=== PATIENT | female | born 1970 | race Caucasian/White ===

== ENCOUNTER 2016-12-21 05:12 | Inpatient (IN) | payer OTHER ==
[2016-12-21] VITALS (12 sets, daily range): BP systolic 106–149; BP diastolic 61–90
[~2016-12-21] VITALS: Ht 162.6 cm; Wt 101.6 kg
[2016-12-21] MEDS ORDERED: ZYRTEC10 MG ORAL (06:21)
[2016-12-21] MEDS ORDERED: VITAMIN D400 INTLU ORAL (06:21)
[2016-12-21] MEDS ORDERED: LEVOFLOXACIN500 MG ORAL (06:21)
[2016-12-21] MEDS ORDERED: CYTOMEL5 MCG ORAL (06:21)
[2016-12-21] MEDS ORDERED: SYNTHROID125 MCG ORAL (06:21)
[2016-12-21] MEDS ORDERED: OMEPRAZOLE40 M1 ORAL (06:21)
[2016-12-21] MEDS ORDERED: ZANTAC150 MG ORAL (06:21)
[2016-12-21] MEDS ORDERED: MAGNESIUM500 MG PO (06:21)
[2016-12-21] MEDS ORDERED: Surgicel 4in x 8in TOPIC ONE (06:40)
[2016-12-21] MEDS ORDERED: Vancomycin 1gm inj IVPB ONE ×2 (06:40→09:44)
[2016-12-21] MEDS ORDERED: Thrombin 5000 units TOPIC ONE ×2 (06:40→09:44)
[2016-12-21] MEDS ORDERED: Bacitracin 50000 Units Vial ONE (06:41)
[2016-12-21] MEDS ORDERED: Labetalol 5mg/ml 20ml vial IV ONE (07:00)
[2016-12-21] MEDS ORDERED: fentaNYL 100 mcg/2 mL IV ONE (07:00)
[2016-12-21] MEDS ORDERED: Esmolol 100mg/10ml Inj ONE (07:00)
[2016-12-21] MEDS ORDERED: Metoprolol 5mg/5ml Inj ONE (07:00)
[2016-12-21] MEDS ORDERED: ceFAZolin 2gm/50ml Premix 50 ML IVPB ONE (07:00)
[2016-12-21] MEDS ORDERED: Sterile Water Irrig 1000ml IRRIG ONE (07:00)
[2016-12-21] MEDS ORDERED: Propofol 1,000mg/ 100ml btl IV ONE (07:00)
[2016-12-21] MEDS ORDERED: Neostigmine 1mg/ml 10ml Inj ONE (07:00)
[2016-12-21] MEDS ORDERED: NS Irrig 1000ml ONE (07:00)
[2016-12-21] MEDS ORDERED: Sodium Chloride 10ml vial INJ ONE (07:00)
[2016-12-21] MEDS ORDERED: Lidocaine 1% MPF 10mg/ml 5ml ONE (07:00)
[2016-12-21] MEDS ORDERED: Glycopyrrolate 0.2mg/ml 1ml Vial ONE (07:00)
[2016-12-21] MEDS ORDERED: Midazolam 2mg/2ml Inj ONE (07:00)
[2016-12-21] MEDS ORDERED: Zemuron 50mg/5ml Inj IV ONE (07:00)
[2016-12-21] MEDS ORDERED: LR 1000ml ONE (07:00)
--- NOTE | 2016-12-21 07:01 | Pre-Procedure Note/Attestation ---
Pre-Procedure Note/Attestation Complete Prior to Procedure Planned Procedure: not applicable Procedure Narrative: Anterior cervical discectomy and artificial disc replacement of C5-6 using and anterior cervical discectomy and fusion of C45 , versus anterior cervical discectomy and artificial disc replacement of C45 and anterior cervical discectomy and fusion of C56 Indications for Procedure Pre-Operative Diagnosis: Herniation nucleus pulposus of C45 and 56 Attestation I attest that I discussed the nature of the procedure; its benefits; risks and complications; and alternatives (and the risks and benefits of such alternatives ), prior to the procedure, with the patient (or the patient's legal customer retention representative). I attest that, if there was a reasonable possibility of needing a blood transfusion, the patient (or the patient's legal customer retention representative) was given the [place] Department [facility] standardized written summary, pursuant to the Carlos [place] Blood Safety Act ([place] Health and Safety Code # 1645, as amended). I attest that I re-evaluated the patient just prior to the surgery and that there has been no change in the patient's H&P, except as documented below: CASSIE LEZAMA Dec 21, 2016 07:01
--- NOTE | 2016-12-21 07:01 | Pre-Procedure Note/Attestation ---
Pre-Procedure Note/Attestation Complete Prior to Procedure Planned Procedure: not applicable Procedure Narrative: Anterior cervical discectomy and artificial disc replacement of C5-6 using and anterior cervical discectomy and fusion of C45 , versus anterior cervical discectomy and artificial disc replacement of C45 and anterior cervical discectomy and fusion of C56 Indications for Procedure Pre-Operative Diagnosis: Herniation nucleus pulposus of C45 and 56 Attestation I attest that I discussed the nature of the procedure; its benefits; risks and complications; and alternatives (and the risks and benefits of such alternatives ), prior to the procedure, with the patient (or the patient's legal patient admitting representative). I attest that, if there was a reasonable possibility of needing a blood transfusion, the patient (or the patient's legal patient admitting representative) was given the [place] Department [facility] Services standardized written summary, pursuant to the [place] Blood Safety Act ([place] Health and Safety Code # 1645, as amended). I attest that I re-evaluated the patient just prior to the surgery and that there has been no change in the patient's H&P, except as documented below: CASSIE LEZAMA Dec 21, 2016 07:01
--- NOTE | 2016-12-21 07:01 | Pre-Procedure Note/Attestation ---
Pre-Procedure Note/Attestation Complete Prior to Procedure Planned Procedure: not applicable Procedure Narrative: Anterior cervical discectomy and artificial disc replacement of C5-6 using and anterior cervical discectomy and fusion of C45 , versus anterior cervical discectomy and artificial disc replacement of C45 and anterior cervical discectomy and fusion of C56 Indications for Procedure Pre-Operative Diagnosis: Herniation nucleus pulposus of C45 and 56 Attestation I attest that I discussed the nature of the procedure; its benefits; risks and complications; and alternatives (and the risks and benefits of such alternatives ), prior to the procedure, with the patient (or the patient's legal financial services sales representative). I attest that, if there was a reasonable possibility of needing a blood transfusion, the patient (or the patient's legal financial services sales representative) was given the [place] Department [facility] standardized written summary, pursuant to the Carlos [place] Blood Safety Act ([place] Health and Safety Code # 1645, as amended). I attest that I re-evaluated the patient just prior to the surgery and that there has been no change in the patient's H&P, except as documented below: CASSIE LEZAMA Dec 21, 2016 07:01
--- NOTE | 2016-12-21 07:02 | Brief Operative Note ---
Immediate Post Operative Note Operative Note Chief Complaint: neck pain and radiculopathy Pre-op Diagnosis: Herniation nucleus pulposus of C45 and 56 Procedure: Anterior cervical discectomy and artificial disc replacement of C5-6 using and anterior cervical discectomy and fusion of C45 , Post-op Diagnosis: same as pre-op Findings: consistent w/pre-op dx studies Surgeon: Merlin Anesthesiologist: Lorraine Anesthesia: general Specimen: none Complications: none Condition: stable Estimated Blood Loss: minimal Drains: none Implant(s) used?: Yes - Prodisc C5, nuvasive interlock c sz 6 screws 3x13 CASSIE LEZAMA Dec 21, 2016 07:02
[2016-12-21] MEDS ORDERED: LR 1000ml 1,000 ML IVLG SCH (08:34)
[2016-12-21] MEDS ORDERED: LORazepam Inj 2mg/ml 1ml IV PRN (08:45)
[2016-12-21] MEDS ORDERED: Hydromorphone 0.5mg/0.5ml inj IVP PRN (08:45)
[2016-12-21] MEDS ORDERED: DiphenhydrAMINE 50mg/ml Inj IVP PRN (08:45)
[2016-12-21] MEDS ORDERED: Meperidine 50mg/ml Inj(FOR RIGORS ONLY) IM ONE (08:45)
[2016-12-21] MEDS ORDERED: LR 1000ml 1,000 ML IV SCH (08:45)
--- NOTE | 2016-12-21 09:00 | Anethesia Preoperative Eval ---
Anesthesia Pre-op PMH/ROS General Date of Evaluation: Dec 21, 2016 Time of Evaluation: 06:50 Anesthesiologist: Francisco ASA Score: ASA 3 Mallampati Score Class I : Soft palate, uvula, fauces, pillars visible Class II: Soft palate, uvula, fauces visible Class III: Soft palate, base of uvula visible Class IV: Only hard plate visible Mallampati Classification: Class II Surgeon: Merlin Diagnosis: Cervical herniated disc Surgical Procedure: ACDFm C4-5, Disc replacement C5-6 Family History: no anesthesia problems Allergies: Coded Allergies: CODEINE (Verified Allergy, Severe, dizziness, 12/21/16) PENICILLINS (Verified Allergy, Unknown, 12/21/16) Medications: see eMAR Past Medical History Cardiovascular: Denies: HTN, CAD, [place], valve dz, arrhythmia, other Pulmonary: Denies: asthma, COPD, HIEN, other Gastrointestinal/Genitourinary: Reports: GERD, Denies: CRI, ESRD, other Endocrine: Reports: hypothyroidism, Denies: DM, steroids, other HEENT: Denies: cataract (L), cataract (R), glaucoma, [place] (L), STILL[place] (R), other Hematology/Immune: Denies: anemia, DVT, bleeding disorder, other Musculoskeletal/Integumentary: Denies: OA, RA, DJD, DDD, edema, other Other: obesity PMH Narrative: Hypothyroid, GERD, obesity PSxH Narrative: B/l CTR, upper extremity nerve surgery Anesthesia Pre-op Phys. Exam Physician Exam Last Vital Signs Date Time Temp Pulse Resp B/P (MAP) Pulse Ox O2 Delivery O2 Flow Rate FiO2 12/21/16 06:12 97.9 67 18 132/78 95 Room Air Constitutional: NAD Neurologic: CN 2-12 intact Cardiovascular: RRR, no M/R/G Respiratory: CTA Gastrointestinal: S/NT/ND Airway Exam Mallampati Score: Class II MO: full ROM: full Teeth: intact Anesthesia Pre-op A/P Labs WNL Urine Test Test 12/21/16 05:25 Urine HCG, Qualitative Negative Studies Pre-op Studies: EKG - NSR, CXR - NAD Risk Assessment & Plan Assessment: ASA class 3 patient for cervical fusion and disc replacement Plan: GETA, SedLine, [place] scope intubation Status Change Before Surgery: No Pre-Antibiotics Drug: Ancef Given Within 1 Hr of Incision: Yes Time Given: 07:30 FREDO HANSON M.D. Dec 21, 2016 09:00
--- NOTE | 2016-12-21 09:00 | Anethesia Preoperative Eval ---
Anesthesia Pre-op PMH/ROS General Date of Evaluation: Dec 21, 2016 Time of Evaluation: 06:50 Anesthesiologist: Francisco ASA Score: ASA 3 Mallampati Score Class I : Soft palate, uvula, fauces, pillars visible Class II: Soft palate, uvula, fauces visible Class III: Soft palate, base of uvula visible Class IV: Only hard plate visible Mallampati Classification: Class II Surgeon: Merlin Diagnosis: Cervical herniated disc Surgical Procedure: ACDFm C4-5, Disc replacement C5-6 Family History: no anesthesia problems Allergies: Coded Allergies: CODEINE (Verified Allergy, Severe, dizziness, 12/21/16) PENICILLINS (Verified Allergy, Unknown, 12/21/16) Medications: see eMAR Past Medical History Cardiovascular: Denies: HTN, CAD, [place], valve dz, arrhythmia, other Pulmonary: Denies: asthma, COPD, HIEN, other Gastrointestinal/Genitourinary: Reports: GERD, Denies: CRI, ESRD, other Endocrine: Reports: hypothyroidism, Denies: DM, steroids, other HEENT: Denies: cataract (L), cataract (R), glaucoma, [place] (L), [place] (R), other Hematology/Immune: Denies: anemia, DVT, bleeding disorder, other Musculoskeletal/Integumentary: Denies: OA, RA, DJD, DDD, edema, other Other: obesity PMH Narrative: Hypothyroid, GERD, obesity PSxH Narrative: B/l CTR, upper extremity nerve surgery Anesthesia Pre-op Phys. Exam Physician Exam Last Vital Signs Date Time Temp Pulse Resp B/P (MAP) Pulse Ox O2 Delivery O2 Flow Rate FiO2 12/21/16 06:12 97.9 67 18 132/78 95 Room Air Constitutional: NAD Neurologic: CN 2-12 intact Cardiovascular: RRR, no M/R/G Respiratory: CTA Gastrointestinal: S/NT/ND Airway Exam Mallampati Score: Class II MO: full ROM: full Teeth: intact Anesthesia Pre-op A/P Labs WNL Urine Test Test 12/21/16 05:25 Urine HCG, Qualitative Negative Studies Pre-op Studies: EKG - NSR, CXR - NAD Risk Assessment & Plan Assessment: ASA class 3 patient for cervical fusion and disc replacement Plan: GETA, SedLine, [place] scope intubation Status Change Before Surgery: No Pre-Antibiotics Drug: Ancef Given Within 1 Hr of Incision: Yes Time Given: 07:30 FREDO HANSON M.D. Dec 21, 2016 09:00
--- NOTE | 2016-12-21 09:00 | Anethesia Preoperative Eval ---
Anesthesia Pre-op PMH/ROS General Date of Evaluation: Dec 21, 2016 Time of Evaluation: 06:50 Anesthesiologist: Francisco ASA Score: ASA 3 Mallampati Score Class I : Soft palate, uvula, fauces, pillars visible Class II: Soft palate, uvula, fauces visible Class III: Soft palate, base of uvula visible Class IV: Only hard plate visible Mallampati Classification: Class II Surgeon: Merlin Diagnosis: Cervical herniated disc Surgical Procedure: ACDFm C4-5, Disc replacement C5-6 Family History: no anesthesia problems Allergies: Coded Allergies: CODEINE (Verified Allergy, Severe, dizziness, 12/21/16) PENICILLINS (Verified Allergy, Unknown, 12/21/16) Medications: see eMAR Past Medical History Cardiovascular: Denies: HTN, CAD, [place], valve dz, arrhythmia, other Pulmonary: Denies: asthma, COPD, HIEN, other Gastrointestinal/Genitourinary: Reports: GERD, Denies: CRI, ESRD, other Endocrine: Reports: hypothyroidism, Denies: DM, steroids, other HEENT: Denies: cataract (L), cataract (R), glaucoma, OSAGE (L), OSAGE (R), other Hematology/Immune: Denies: anemia, DVT, bleeding disorder, other Musculoskeletal/Integumentary: Denies: OA, RA, DJD, DDD, edema, other Other: obesity PMH Narrative: Hypothyroid, GERD, obesity PSxH Narrative: B/l CTR, upper extremity nerve surgery Anesthesia Pre-op Phys. Exam Physician Exam Last Vital Signs Date Time Temp Pulse Resp B/P (MAP) Pulse Ox O2 Delivery O2 Flow Rate FiO2 12/21/16 06:12 97.9 67 18 132/78 95 Room Air Constitutional: NAD Neurologic: CN 2-12 intact Cardiovascular: RRR, no M/R/G Respiratory: CTA Gastrointestinal: S/NT/ND Airway Exam Mallampati Score: Class II MO: full ROM: full Teeth: intact Anesthesia Pre-op A/P Labs WNL Urine Test Test 12/21/16 05:25 Urine HCG, Qualitative Negative Studies Pre-op Studies: EKG - NSR, CXR - NAD Risk Assessment & Plan Assessment: ASA class 3 patient for cervical fusion and disc replacement Plan: GETA, SedLine, [place] scope intubation Status Change Before Surgery: No Pre-Antibiotics Drug: Ancef Given Within 1 Hr of Incision: Yes Time Given: 07:30 FREDO HANSON M.D. Dec 21, 2016 09:00
--- NOTE | 2016-12-21 09:05 | Immediate Post-Op Evaluation ---
Immediate Post-Op Evalulation Immediate Post-Op Evalulation Procedure: ACDF C4-5, disc replacement C5-6 Date of Evaluation: Dec 21, 2016 Time of Evaluation: 10:35 IV Fluids: 1750 Estimated Blood Loss: 50 Urinary Output: 150 Blood Pressure Systolic: 109 Blood Pressure Diastolic: 61 Pulse Rate: 105 Respiratory Rate: 12 O2 Sat by Pulse Oximetry: 99 Temperature (Fahrenheit): 97.0 Pain Score (1-10): 0 Nausea: No Vomiting: No Complications No complication Patient Status: reacts, patent, extubated, none Hydration Status: adequate Drug: Ancef Given Within 1 Hr of Incision: Yes Time Given: 07:30 FREDO HANSON M.D. Dec 21, 2016 09:05
[2016-12-21] MEDS ORDERED: Meperidine 50mg/ml Inj(FOR RIGORS ONLY) IVP PRN (11:30)
[2016-12-21] MEDS: HYDROmorphone 1mg/ml Carpuject IVP PRN ×2 (12:39→20:55)
[2016-12-21] MEDS ORDERED: Naloxone 0.4mg/ml Inj IVP PRN (13:00)
[2016-12-21] MEDS ORDERED: Metoclopramide 10mg/2ml Inj IVP PRN (13:00)
[2016-12-21] MEDS ORDERED: Norco 5mg/325mg tab ORAL PRN (13:00)
[2016-12-21] MEDS ORDERED: HYDROmorphone 1mg/ml Carpuject SUBQ PRN (13:00)
[2016-12-21] MEDS ORDERED: Norco 7.5mg/325mg tab ORAL PRN (13:00)
--- NOTE | 2016-12-21 13:23 | 48 Hour Post Anesthesia Eval ---
Post Anesthesia Evaluation Procedure: ACDF C4-5, disc replacement C5-6 Date of Evaluation: Dec 21, 2016 Time of Evaluation: 11:45 Blood Pressure Systolic: 138 0: 79 Pulse Rate: 96 Respiratory Rate: 16 Temperature (Fahrenheit): 97.0 O2 Sat by Pulse Oximetry: 99 Airway: patent Nausea: No Vomiting: No Pain Intensity: 3 Hydration Status: adequate Cardiopulmonary Status: [place] Mental Status/LOC: patient returned to baseline Follow-up Care/Observations: As per surgery Post-Anesthesia Complications: No anesthetic complication Follow-up care needed: N/A FREDO HANSON M.D. Dec 21, 2016 13:23
[2016-12-21] MEDS: Dexamethasone 4mg/ml vial IVP SCH ×3 (13:59→23:29)
[2016-12-21] MEDS: NS w/KCl 20mEq 1,000 ML IV SCH ×2 (13:59→23:49)
[2016-12-21] MEDS ORDERED: Chloraseptic Spray 20mL Bottle ORAL PRN (14:00)
--- NOTE | 2016-12-21 15:20 | General Progress Note ---
Subjective Date patient seen: Dec 21, 2016 Time patient seen: 15:20 Allergies: Coded Allergies: CODEINE (Verified Allergy, Severe, dizziness, 12/21/16) PENICILLINS (Verified Allergy, Unknown, 12/21/16) Objective Last 24 Hour Vital Signs Date Time Temp Pulse Resp B/P (MAP) Pulse Ox O2 Delivery O2 Flow Rate FiO2 12/21/16 13:23 96 16 99 12/21/16 13:09 97.0 12/21/16 12:16 97.0 96 16 138/79 99 Nasal Cannula 3.0 12/21/16 11:35 98.9 101 17 133/84 98 Nasal Cannula 3.0 12/21/16 11:20 102 26 133/86 97 Nasal Cannula 3.0 12/21/16 11:05 106 16 149/89 97 Nasal Cannula 3.0 12/21/16 10:50 104 12 142/90 98 Simple Mask 6.0 12/21/16 10:40 107 11 113/64 98 Simple Mask 6.0 12/21/16 10:33 105 11 111/64 98 Simple Mask 6.0 12/21/16 10:31 105 12 99 12/21/16 10:28 104 11 106/64 98 Simple Mask 6.0 12/21/16 10:23 97.0 105 15 109/61 99 Simple Mask 6.0 12/21/16 06:12 97.9 67 18 132/78 95 Room Air Intake and Output 12/21/16 12/22/16 19:00 07:00 Intake Total 2250 ml Output Total 200 ml Balance 2050 ml Intake IV Total 2250 ml Output Urine Total 150 ml Estimated Blood Loss 50 ml Laboratory Tests 12/21/16 05:25: Urine HCG, Qualitative Negative Height (Feet): 5 Height (Inches): 4.00 Weight (Pounds): 224 Alba Hidalgo M.D. Dec 21, 2016 15:20
--- NOTE | 2016-12-21 15:47 | Consultation ---
History of Present Illness General Date patient seen: Dec 21, 2016 Time patient seen: 15:00 Chief Complaint: intractable neck pain Referring physician: Dr. Boyer Reason for Consultation: med trupti Present Illness HPI 46y/o female with pmh of hypothyroidism, GERD, cervical disc herniation who is now s/p nterior cervical discectomy and artificial disc replacement of C5-6 using and anterior cervical discectomy and fusion of C45 earlier today. Postop pain appears well-controlled. C/o some nausea but no emesis. Denies f/c, chest pain, SOB, abd pain, d/c. Allergies: Coded Allergies: CODEINE (Verified Allergy, Severe, dizziness, 12/21/16) PENICILLINS (Verified Allergy, Unknown, 12/21/16) Medication History Scheduled Cetirizine Hcl* (Zyrtec*), 10 MG ORAL DAILY, (Reported) Levofloxacin (Levofloxacin*), 500 MG ORAL DAILY, (Reported) Levothyroxine Sodium* (Synthroid*), 125 MCG ORAL DAILY, (Reported) Liothyronine Sodium* (Cytomel*), 5 MCG ORAL DAILY, (Reported) Magnesium Oxide (Magnesium), 1,000 MG PO DAILY, (Reported) Omeprazole (Omeprazole), 40 MG ORAL DAILY, (Reported) Ranitidine Hcl* (Zantac*), 150 MG ORAL DAILY, (Reported) Vitamin D (Vitamin D3), 5,000 INTLU ORAL DAILY, (Reported) Patient History History Provided By: Patient, Family Member, Medical Record, PMD Healthcare decision maker rishi() Resuscitation status Full Code Advanced Directive on File No Past Medical/Surgical History Past Medical/Surgical History: (1) Hypothyroidism (2) GERD (gastroesophageal reflux disease) (3) HNP (herniated nucleus pulposus), cervical Family History Family History: (1) No significant family history Social History Social History: (1) No significant social history Review of Systems ROS Narrative CONSTITUTIONAL: No weight loss, fever, chills, weakness or fatigue. HEENT: Eyes: No visual loss, blurred vision, double vision or yellow sclerae. Ears, Nose, Throat: No hearing loss, sneezing, congestion, runny nose or sore throat. SKIN: No rash or itching. CARDIOVASCULAR: No chest pain, chest pressure or chest discomfort. No palpitations or edema. RESPIRATORY: No shortness of breath, cough or sputum. GASTROINTESTINAL: No anorexia, vomiting or diarrhea. No abdominal pain or blood. +nausea NEUROLOGICAL: No headache, dizziness, syncope, paralysis, ataxia, numbness or tingling in the extremities. No change in bowel or bladder control. MUSCULOSKELETAL: No muscle, back pain, joint pain or stiffness. HEMATOLOGIC: No anemia, bleeding or bruising. LYMPHATICS: No enlarged nodes. No history of splenectomy. PSYCHIATRIC: No history of depression or anxiety. ENDOCRINOLOGIC: No reports of sweating, cold or heat intolerance. No polyuria or polydipsia. ALLERGIES: No history of asthma, hives, eczema or rhinitis. Physical Exam Physical Exam Narrative General: alert, cooperative, no distress, appears stated age Head: normocephalic, without obvious abnormality, atraumatic Eyes: conjunctivae/corneas clear. PERRL, EOM's intact Throat: lips, mucosa, and tongue normal. MMM Neck: supple, symmetrical, trachea midline, and no JVD Lungs: clear to auscultation bilaterally Heart: regular rate and rhythm, S1, S2 normal, no murmur, click, rub or gallop Abdomen: soft, non-tender, non-distended, bowel sounds normal; no masses or organomegaly Extremities: extremities normal, atraumatic, no cyanosis or edema Pulses: 2+ and symmetric Skin: skin color, texture, turgor normal; no rashes or lesions Dressing c/d/i Neurologic: grossly normal, no focal deficits Last 24 Hour Vital Signs Date Time Temp Pulse Resp B/P (MAP) Pulse Ox O2 Delivery O2 Flow Rate FiO2 12/21/16 13:23 96 16 99 12/21/16 13:09 97.0 12/21/16 12:16 97.0 96 16 138/79 99 Nasal Cannula 3.0 12/21/16 11:35 98.9 101 17 133/84 98 Nasal Cannula 3.0 12/21/16 11:20 102 26 133/86 97 Nasal Cannula 3.0 12/21/16 11:05 106 16 149/89 97 Nasal Cannula 3.0 12/21/16 10:50 104 12 142/90 98 Simple Mask 6.0 12/21/16 10:40 107 11 113/64 98 Simple Mask 6.0 12/21/16 10:33 105 11 111/64 98 Simple Mask 6.0 12/21/16 10:31 105 12 99 12/21/16 10:28 104 11 106/64 98 Simple Mask 6.0 12/21/16 10:23 97.0 105 15 109/61 99 Simple Mask 6.0 12/21/16 06:12 97.9 67 18 132/78 95 Room Air Intake and Output 12/21/16 12/22/16 19:00 07:00 Intake Total 2250 ml Output Total 200 ml Balance 2050 ml Intake IV Total 2250 ml Output Urine Total 150 ml Estimated Blood Loss 50 ml Laboratory Tests Test 12/21/16 05:25 Urine HCG, Qualitative Negative Height (Feet): 5 Height (Inches): 4.00 Weight (Pounds): 224 Medications Current Medications Medications (Trade) Dose Ordered Sig/Maggie Route PRN Reason Start Time Stop Time Status Last Admin Dose Admin Acetaminophen (Tylenol) 650 mg Q4H PRN ORAL headache or temp>101 12/21/16 13:00 01/20/17 12:59 Acetaminophen/ Hydrocodone Bitart ([place] 5/325) 1 tab Q3H PRN ORAL pain score 1-3 12/21/16 13:00 12/28/16 12:59 Acetaminophen/ Hydrocodone Bitart ([place] 7.5/325) 1 ea Q3H PRN ORAL pain score 4-6 12/21/16 13:00 12/28/16 12:59 Acetaminophen/ Hydrocodone Bitart (Treadwell 7.5/325) 2 ea Q3H PRN ORAL pain scale 7-10 12/21/16 13:00 12/28/16 12:59 Carisoprodol (Soma) 350 mg TIDPRN PRN ORAL SPASM 12/21/16 13:00 01/20/17 12:59 12/21/16 15:43 Cetirizine HCl (ZyrTEC) 10 mg DAILY ORAL 12/22/16 09:00 01/21/17 08:59 Cetylpyridinium Chloride (Cepacol) 1 lozenge Q2H PRN STIVEN To Patient Comfort 12/21/16 13:00 01/20/17 12:59 Dexamethasone Sodium Phosphate (Decadron 4mg/ml vial) 4 mg Q6HR IVP 12/21/16 13:00 12/22/16 06:01 12/21/16 13:59 Diphenhydramine HCl (Benadryl) 25 mg Q15M PRN IVP Itching 12/21/16 08:45 12/21/16 16:00 Docusate Sodium (Colace) 100 mg TWICE A DAY ORAL 12/21/16 18:00 01/20/17 17:59 Hydralazine HCl (Apresoline) 5 mg Q30M PRN IV SBP>160 OR___/DBP>100 12/21/16 08:45 12/21/16 16:00 Hydromorphone HCl (Dilaudid) 0.5 mg Q15M PRN IVP Severe Pain (Pain Scale 7-10) 12/21/16 08:45 12/21/16 16:00 12/21/16 11:07 Hydromorphone HCl (Dilaudid) 1 mg Q2H PRN IVP Breakthrough Pain 12/21/16 13:00 12/28/16 12:59 12/21/16 12:39 Hydromorphone HCl (Dilaudid) 1 mg Q4H PRN SUBQ Mild Pain (Pain Scale 1-3) 12/21/16 13:00 12/28/16 12:59 Hydromorphone HCl (Dilaudid) 2 mg Q3H PRN SUBQ Severe Pain (Pain Scale 7-10) 12/21/16 13:00 12/28/16 12:59 Hydromorphone HCl (Dilaudid) 2 mg Q4H PRN SUBQ Moderate Pain (Pain Scale 4-6) 12/21/16 13:00 12/28/16 12:59 Lactated Ringer's 1,000 ml @ 50 mls/hr Q20H IV 12/21/16 08:45 12/21/16 18:00 Levothyroxine Sodium (Synthroid) 125 mcg BEFORE BREAKFAST ORAL 12/22/16 06:30 01/21/17 06:29 Liothyronine Sodium (Cytomel) 5 mcg BEFORE BREAKFAST ORAL 12/22/16 06:30 01/21/17 06:29 Meperidine HCl (Demerol) 50 mg ONCE PRN IVP Shivering 12/21/16 11:30 12/21/16 16:00 Metoclopramide HCl (Reglan) 10 mg Q6H PRN IVP Nausea & Vomiting 12/21/16 13:00 01/20/17 12:59 Naloxone HCl (Narcan) 0.1 mg PRN PRN IVP RR<12/min, pt unarousable 12/21/16 13:00 01/20/17 12:59 Ondansetron HCl (Zofran) 4 mg Q1H PRN IVP Nausea & Vomiting 12/21/16 08:45 12/21/16 16:00 Ondansetron HCl (Zofran) 4 mg Q6H PRN IVP Nausea & Vomiting 12/21/16 13:00 01/20/17 12:59 Phenol/Menthol (Chloraseptic) 1 spray Q3H PRN ORAL To Patient Comfort 12/21/16 14:00 01/20/17 13:59 Ranitidine HCl (Zantac) 150 mg DAILY ORAL 12/22/16 09:00 01/21/17 08:59 Sodium Chloride 1,000 ml @ 100 mls/hr Q10H IV 12/21/16 14:00 01/20/17 13:59 12/21/16 13:59 Temazepam (Restoril) 15 mg HSPRN PRN ORAL Insomnia 12/21/16 21:00 12/28/16 20:59 Vancomycin HCl 1 gm/Dextrose 275 ml @ 183.3 mls/ hr Q12H IVPB 12/21/16 19:30 12/22/16 09:01 Vitamin D (Vitamin D) 5,000 intlu DAILY ORAL 12/22/16 09:00 01/21/17 08:59 Assessment/Plan Problem List: (1) HNP (herniated nucleus pulposus), cervical ICD Codes: M50.20 - Other cervical disc displacement, unspecified cervical region SNOMED: 64962491 (2) Hypothyroidism ICD Codes: E03.9 - Hypothyroidism, unspecified SNOMED: 79562473 (3) GERD (gastroesophageal reflux disease) ICD Codes: K21.9 - Gastro-esophageal reflux disease without esophagitis SNOMED: 117195453 Status: stable Assessment/Plan s/p Anterior cervical discectomy and artificial disc replacement of C5-6 using and anterior cervical discectomy and fusion of C45 on 12/21/16 Post operative recommendations include: - encourage mobilization/ambulation - encourage incentive spirometry to optimize pulmonary hygiene - DVT/GI prophylaxis as appropriate--SCDs, POI - PT/OT - pain control, supportive care, bowel regimen - cont home meds D/w pt, RN, surgery regarding mgmt and dispo Alba Hidalgo M.D. Dec 21, 2016 15:47
--- NOTE | 2016-12-21 16:37 | Diagnostic Imaging Report ---
Indication: Neck Pain Findings: Fluoroscopic views of the cervical spine were obtained. Anterior C4-5 fusion and C5-6 discectomy and prosthesis placement noted on multiple images obtained. Impression: Intraoperative imaging
[2016-12-21] MEDS: Docusate 100mg cap ORAL SCH (17:04)
[2016-12-21] MEDS: Norco 7.5mg/325mg tab ORAL PRN (18:07)
[2016-12-21] MEDS: Vancomycin 1 GM in D5W 275 ML IVPB SCH (18:54)
[2016-12-22] VITALS: BP 124/66
--- NOTE | 2016-12-22 02:00 | Operative Note - Dictated ---
DATE OF OPERATION: 12/21/2016 SURGEON: Luís Boyer MD, oOrthopedic spine surgeon MILITARY PROFESSIONAL: None. PREOPERATIVE DIAGNOSES: 1. Intractable neck pain. 2. Radiculopathy. 3. 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 4. Neural foraminal stenosis, C4-5 and C5-6. POSTOPERATIVE DIAGNOSES: 1. Intractable neck pain. 2. Radiculopathy. 3. 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 4. Neural foraminal stenosis, C4-5 and C5-6. PROCEDURE PERFORMED: 1. Anterior cervical discectomy and artificial disc replacement of C5-6 using a Synthes ProDisc C, size 5 height. 2. C4-5 anterior cervical discectomy and fusion using with a NuVasive Interlock C, size 5 cage and Osteocel bone. 3. Use of intraoperative microscope. 4. Motor evoked potential monitoring. 5. Somatosensory evoked potential monitoring. 6. Supervision and interpretation of fluoroscopy. COMPLICATIONS: None. ANESTHESIA: General. ESTIMATED BLOOD LOSS: Less than 100 mL. INDICATIONS FOR SURGERY: This patient is a 46-year-old female who has a history of diagnoses as listed above, the result of which are well detailed in our chart. As of result of this, the patient sustained intractable neck pain; radiculopathy; herniation, C4-5 and C5-6; and neural foraminal stenosis, C4-5 and C5-6. We tried a course of conservative management but despite this course there was still a significant component of persistent, recalcitrant neck pain and arm pain. The MRI demonstrated significant neural foraminal compromise secondary to disc herniations at C4-5 and C5-6. We had a long discussion with Mic regarding the risks and benefits of surgery. Our discussion included, but was not limited to nonoperative management, chiropractic management, another epidural steroid injection as well definitive management in the form of surgery. We recommended anterior cervical discectomy and artificial disc replacement of C5-6 using a Synthes ProDisc C, size 5 height and C4-5 anterior cervical discectomy and fusion using with a NuVasive Interlock C, size 5 cage and Osteocel bone as final definitive management. We reviewed the risks and benefits of surgery with the patient. Our discussion included a comprehensive review of the clinical issues and the nature of the clinical decision. We reviewed the alternatives, including doing nothing. The patient elected to proceed accordingly with anterior cervical discectomy and artificial disc replacement of C5-6 using a Synthes ProDisc C, size 5 height and C4-5 anterior cervical discectomy and fusion using with a NuVasive Interlock C, size 5 cage and Osteocel bone. We had a long discussion regarding the risks, alternatives and benefits of surgery. Our description of the risks included a discussion in person as well as a signed consent which detailed all pertinent risks from the procedure itself. Briefly, our discussion included but was not limited to infection, bleeding, pseudarthrosis, spinal cord injury, neurovascular injury, dural tear, CSF leak, neuropathy, paralysis, permanent weakness/drop foot/drop arm, paresthesias, blindness, palsy and weakness. The patient understood there may be a need for a revision surgery or additional procedures. Approach-related complications including dysphonia, dysphagia, blindness, permanent vocal cord and neural injury, hematoma, swallowing and breathing difficulty. Medical complications were reviewed including liver, kidney, shock, cardiopulmonary failure, anesthesia complications including , swelling, damage to the musculature, larynx/voice injury or loss, esophagus/throat, trachea, blood vessels and muscles/muscular sprain and lungs/pneumothorax during this surgical procedure; injury to deeper structures may be temporary or permanent. After this review of risks, the patient understood these and elected to proceed. A written and verbal consent was given. We discussed the pros and cons of all the alternatives. We discussed the uncertainties associated with the decision. Afterwards I assessed the patient's understanding and explored their preferences. All questions were answered and no guarantees were given. Medical clearance was obtained prior to surgery. INTRAOPERATIVE FINDINGS: A broad based disc herniation which was found posterior to a tear/rent in the posterior longitudinal ligament at C4-5 and also seen at C5-6 causing a considerable amount of neural foraminal stenosis with significant encroachment on the neural foramina and spinal cord. DESCRIPTION OF PROCEDURE: Under the benefit of general endotracheal anesthesia and with the assistance of the entire operative team, the patient was moved from the rney onto the operative table in the supine position. The head was secured and carefully positioned appropriately. Bilateral arms were secured with GelPads and foam and all bony prominences were padded. For the bilateral lower extremities SCD and ANTOINETTE hose were placed for DVT prophylaxis. A surgical timeout was called which corroborated our planned procedure of anterior cervical discectomy and artificial disc replacement of C5-6 using a Synthes ProDisc C, size 5 height and C4-5 anterior cervical discectomy and fusion using with a NuVasive Interlock C, size 5 cage and Osteocel bone. Preoperative antibiotics were administered within 30 minutes of the incision for antibiotic prophylaxis. Using lateral fluoroscopic radiography, the operative levels were delineated. Next the wound was prepped and draped with Chlorhexidine and sterile drapes. An incision was based on lateral fluoroscopy and we centered our incision at the C4-5 and C5-6 interspace and next using a standard Brooks-Clinton anterior based approach the incision was taken down through the skin and subcutaneous tissues until the vertebral bodies and their corresponding disc spaces were visualized. A needle was placed into the interspace to confirm placement of the operative interspace and we performed the remainder of procedure under microscopic visualization. Next, using a bipolar and Bovie cautery to ensure meticulous hemostasis, the longus colli was mobilized bilaterally and retractors were placed deep to the longus colli bilaterally to address retraction. Next we turned our attention to the radical anterior discectomy. This was initially performed at C5-6 first by using a 15 blade scalpel followed by narrow pituitaries and a Microsect 5-B curette was used to denude the endplate of all cartilaginous tissue. Next using a [employer] AM8 drillbit the vertebral endplated were denuded in a [id number] and layer by layer fashion, and ultimately the posterior uncinate joints bilaterally and posterior osteophytic lips and margins causing central and lateral impingement were carefully denuded until visualization of the posterior longitudinal ligament was possible. An endplate preparation was performed in the exact same fashion using an intervertebral patternmaker wood, sequential distraction was obtained throughout the disc space. We saw a tear/rent in the PLL and this was carefully mobilized and dissected using a Microsect 1-B curet until we visualized a broad-based disc herniation with compression of the spinal cord as well as neural foramina. This neural foraminal compression was carefully resected using a Kerrison-1 and Kerrison-2 rongeurs until complete decompression of the spinal cord was visualized and complete decompression of the neural foramina and nerve root therein as well as the axilla and lateral margin of the nerve root was visualized and subsequently completely decompressed. The family was notified at one hour intervals throughout the procedure to provide for consistent updates. We next turned our attention towards trialing our implant within the disc space. We initially tried size 5 and the ProDisc Cervical spacer fit well in regards to depth and width. This implant was opened and prepared. Next under direct visualization, I confirmed excellent fit in respect to the anterior and posterior vertebral bodies, the uncinate joints and in regards to toggle. Once satisfied with this placement on serial AP and lateral fluoroscopy I turned my attention towards cutting our dea. These were cut in the bones using a reciprocating drill and afterwards all free fragments of bone were irrigated. Next FloSeal was placed into the interspace and the implant was inserted using fluoroscopic guidance. Next the Synthes ProDisc C size 5 ADR was then carefully advanced and secured into the intervertebral space under direct visualization and with supervision of AP and lateral fluoroscopic views. Next we turned our attention to the radical anterior discectomy at the C4-5 level. First by using a 15 blade scalpel followed by narrow pituitaries and a micro-sect 5-B curette was used to denude the endplate of all cartilaginous tissue. Next using a [employer] AM8 drillbit the vertebral endplates were denuded in a [id number] and layer by layer fashion, and ultimately the posterior uncinate joints bilaterally and posterior osteophytic lips and margins causing central and lateral impingement were carefully denuded until visualization of the posterior longitudinal ligament was possible. An endplate preparation was performed in the exact same fashion using an intervertebral patternmaker wood, sequential distraction was obtained throughout the disc space. We saw a tear/rent in the PLL and this was carefully mobilized and dissected using a micro-set 1-B curet until we visualized a broad-based disc herniation with compression of the spinal cord as well neural foramina. This neural foraminal compression was carefully resected using a Kerrison-1 and Kerrison-2 rongeurs until complete decompression of the spinal cord was visualized and complete decompression of the neural foramina and nerve root therein as well as the axilla and lateral margin of the nerve root was visualized and subsequently completely decompressed. We next turned our attention towards trialing our implant within the disc space. We initially tried size 5 and afterwards size 6 trial from the the NuVasive system at each level, which appeared to be appropriate under AP and lateral fluoroscopy as well as in terms of its height, depth, width and lack of toggle. The PEEK polyetheretherketone interbody cages were then both packed with allograft bone from Osteocel and local autograft bone matrix. Next these were then carefully advanced and secured into their intervertebral spaces under direct visualization and with supervision of AP and lateral fluoroscopic views. We next turned our attention towards plating. Plating was performed with the NuVasive Interlock-C size 5 cage and 3 screws of 12 mm length were inserted and confirmed under AP and lateral fluoroscopy and confirmed to be in excellent position. After a finger sweep we confirmed removal of all sponges. The retractor was removed and we next turned our attention to meticulous hemostasis with FloSeal and bipolar cautery. After the sponge and needle count was again found to be correct with our second count, we next turned our attention to closure. The wound was again copiously irrigated with antibiotic impregnated saline. Closure consisted of 4-0 clear nylon for the platysma, and 6-0 clear nylon for the superficial skin. Final skin closure and dressings consisted of Dermabond. Prior to final closure, a final radiograph was obtained which demonstrated the hardware is intact with excellent position throughout. The patient tolerated the procedure well. The patient was carefully extubated after the conclusion of surgery. We discussed the findings of the surgery with the family upon completion of the case. At this point the patient was transferred to the spine floor for further observation. Luís Boyer M.D. DR: WILLIAMS JOB#: [id number] CC: TAYLOR
--- NOTE | 2016-12-22 02:15 | Discharge Summary ---
DATE OF ADMISSION: 12/21/2016 DATE OF DISCHARGE: 12/22/2016 PROCEDURE PERFORMED DURING ADMISSION: C4-5 ACDF and C5-6 artificial disk replacement. REASON FOR ADMISSION: C4-5 and C5-6 herniation. DISCHARGE PHYSICAL EXAM: 1. Patient was ambulating with and without the assistance of physical therapy. 2. Prior to discharge home incision was clean and dry with minimal swelling. 3. Follows commands. 4. Alert and oriented. 5. Dominguez discontinued, voiding. 6. Incentive spirometer at bedside. 7. IVF hep locked. MOTOR: Demonstrates expected postoperative bulk and tone. Moves biceps, triceps, and deltoid musculature on command. Moves hip flexors, quadriceps, tibialis anterior, EHL, gastrocsoleus musculature on command as well. TREATMENT RENDERED: 1. Daily nursing care. 2. Physical Therapy. 3. Occupational Therapy. 4. Intravenous medications. 5. Oral medications. 6. Daily postoperative examinations by Spine surgery team. CONDITION OF PATIENT ON DISCHARGE: The condition on discharge is stable for discharge to home. DISCHARGE INSTRUCTIONS: Our specific instructions relating to physical activity, medications diet and follow-up care are detailed in our standard operative folder and were given to this patient prior to surgery. We will however summarize these briefly as stated below. Regarding physical activity we would like the patient to limit their flexion, extension and rotation. We also require a limitation on their bending lifting and twisting. All medication has been called in prior to surgery to their pharmacy of choice. They can resume their regular diet once tolerated. We would like them to shower and limit soaking the wound in a tub/Jacuzzi/the ocean for a period of one month or until the incision is completely healed. We will have them follow up in our office in three weeks time for their regularly scheduled appointment. They understand to call our office tomorrow to schedule the time for their three week followup appointment. The patient will notify us should they experience any increase in the severity of pain, redness/swelling/ or drainage from their incision. Luís Boyer M.D. DR: WILLIAMS JOB#: [id number] CC:
[2016-12-22] MEDS: HYDROmorphone 1mg/ml Carpuject IVP PRN (02:26)
[2016-12-22 04:00] VITALS: BP 108/64
[2016-12-22] MEDS: Dexamethasone 4mg/ml vial IVP SCH (06:14)
[2016-12-22] MEDS: Vancomycin 1 GM in D5W 275 ML IVPB SCH (06:14)
[2016-12-22] MEDS: Norco 7.5mg/325mg tab ORAL PRN (06:16)
[2016-12-22] MEDS ORDERED: Levothyroxine 125mcg tab ORAL SCH (06:30)
[2016-12-22] MEDS ORDERED: Liothyronine 5mcg tab ORAL SCH (06:30)
[2016-12-22] MEDS: Docusate 100mg cap ORAL SCH (08:15)
[2016-12-22 08:42] VITALS: BP 121/66
[2016-12-22] MEDS ORDERED: Vitamin D 1000 IU Tab ORAL SCH (09:00)
[2016-12-22] MEDS ORDERED: Tubing IV Secondary IV ONE (09:59)
[2016-12-22] MEDS: NS w/KCl 20mEq 1,000 ML IV SCH (10:00)
== END 2016-12-22 10:00 | disposition home or self-care (01) | DRG 473 ==
LOC: SDSOVERFLO 05:12 → 3E 11:54
PROC: 00NW0ZZ Release Cervical Spinal Cord, Open Approach (ICD-10-PCS; principal; 2016-12-21 07:00)
PROC: 0RG10A0 Fusion of Cervical Vertebral Joint with Interbody Fusion Device, Anterior Approach, Anterior Column, Open Approach (ICD-10-PCS; principal; 2016-12-21 07:00)
PROC: 4A11X4G Monitoring of Peripheral Nervous Electrical Activity, Intraoperative, External Approach (ICD-10-PCS; principal; 2016-12-21 07:00)
PROC: 0RT30ZZ Resection of Cervical Vertebral Disc, Open Approach (ICD-10-PCS; principal; 2016-12-21 07:00)
DX: M48.02 Spinal stenosis, cervical region (principal); E03.8 Other specified hypothyroidism
CPT/HCPCS: 36415; 72040; 76001; 81025; 86850; 86900; 86901; 87081; 94003; 94150; J2250; J2405; J2710